=== PATIENT | male | born 1985 | race Caucasian/White ===

== ENCOUNTER 2017-12-28 16:55 | Emergency (ER) | payer OTHER ==
[~2017-12-28] VITALS: Ht 185.4 cm; Wt 86.2 kg
[2017-12-28 17:00] VITALS: BP 139/85
[2017-12-28] MEDS ORDERED: IBUPROFEN 600 MG TABLET PO ONE (18:45)
[2017-12-28] MEDS ORDERED: HYDROCODONE/APAP 5/325MG 1 EACH TABLET ONE (18:45)
[2017-12-28] MEDS: HYDROCODONE/APAP 5/325MG 1 EACH TABLET PO ONE (18:48)
[2017-12-28] MEDS: IBUPROFEN 600 MG TABLET PO ONE (18:48)
--- NOTE | 2017-12-28 19:09 | NUR ---
RECEIVED REPORT FROM VIOLETA WELSH FOR JAYLIN.
== END 2017-12-28 21:24 | disposition home or self-care (01) ==
LOC: ER 16:57
DX: S43.492A Other sprain of left shoulder joint, initial encounter (principal); S50.12XA Contusion of left forearm, initial encounter; Z88.0 Allergy status to penicillin; V49.49XA Driver injured in collision with other motor vehicles in traffic accident, initial encounter; Y93.89 Activity, other specified; Y92.413 State road as the place of occurrence of the external cause; Y99.8 Other external cause status
CPT/HCPCS: 73030-TC; 73090-TC; A4606; Z7610